=== PATIENT | male | born 1985 | race Caucasian/White ===

== ENCOUNTER 2021-12-23 13:16 | Emergency (ER) | payer BC ==
[2021-12-23] MEDS ORDERED: Ondansetron PF 4 MG/2 ML Vial ONE (13:33)
[2021-12-23] MEDS ORDERED: Lactated Ringer's 1,000 ML ONE (13:33)
[2021-12-23] MEDS ORDERED: Acetaminophen 500 MG TAB ONE (13:33)
[2021-12-23] MEDS ORDERED: Benzonatate 100 MG CAP ONE (13:37)
[2021-12-23 13:43] LABS: #Basophils 0.1 thou/uL (0.0-0.2); #Eosinphils 0.2 thou/uL (0.0-0.7); #Lymphocytes 1.8 thou/uL (1.20-3.40); #Monocytes 0.7 thou/uL (0.11-0.59); #Neutrophils 5.6 thou/uL (1.40-6.50); %Basophils 1.5 % (0.0-1.0); %Eosinophils 2.1 % (0.0-10.0); %Lymphocytes 21.3 % (21.0-51.0); %Monocytes 8.6 % (0.0-10.0); %Neutrophils 66.5 % (42.0-75.0); Hemoglobin 15.6 g/dL (14.0-18.0); Mean Corpuscular HGB CONC 33.3 g/dL (32.0-36.0); Mean Corpuscular Hemoglobin 29.1 pg (27.0-31.0); Mean Corpuscular Volume 87.5 fL (78.0-98.0); Mean Platelet Volume 10.7 fL (7.4-10.4); Platelet Count 233 thou/uL (130-400); RBC Distribution Width 11.7 % (11.5-14.5); Red Blood Cell (RBC) Count 5.37 mill/uL (4.70-6.10); White Blood Cell (WBC) Count 8.4 thou/uL (4.8-10.8)
[2021-12-23 13:58] LABS: ALT (SGPT) 44 U/L (8-55); AST (SGOT) 30 U/L (5-34); Albumin 4.3 g/dL (3.5-5.0); Alkaline Phosphatase 126 U/L (40-110); Anion Gap 16 mmol/L (10-20); BUN (Urea Nitrogen) 11 mg/dL (8.9-20.6); Bilirubin, Total 0.4 mg/dL (0.2-1.2); Calc. Creatinine Clearance 0 mL/min (70-130); Calcium 9.4 mg/dL (7.8-10.44); Carbon Dioxide 22 mmol/L (22-29); Chloride 107 mmol/L (98-107); Estimated GFR 86; Glucose 103 mg/dL (70-105); Potassium 3.7 mmol/L (3.5-5.1); Protein, Total 7.3 g/dL (6.0-8.3); Sodium 141 mmol/L (136-145)
[2021-12-23] MEDS ORDERED: Oseltamivir 75 MG CAP ONE (14:31)
[2021-12-23] MEDS ORDERED: Ketorolac Tromethamine 30 MG/ML VIAL ONE (14:31)
== END 2021-12-23 17:50 | disposition home or self-care (01) ==
LOC: MADERS 13:16
DX: J10.1 Influenza due to other identified influenza virus with other respiratory manifestations (principal); R07.89 Other chest pain; F17.210 Nicotine dependence, cigarettes, uncomplicated; Z20.822 Contact with and (suspected) exposure to COVID-19
CPT/HCPCS: 71045; 80053; 83605; 84443; 84484; 85025; 85379; 87040; 87804; 93005; 94760; 96361; 96374; 96375; J1885; J2405; J7120; U0003; U0005